=== PATIENT | male | born 1965 | race Caucasian/White ===

== ENCOUNTER → 2021-07-17 15:50 | Outpatient (BNVA) | payer OTHER, SELFPAY | PROVIDERS: Visit Provider Family Medicine | DX: M1A.9XX0 Chronic gout, unspecified, without tophus (tophi) (principal); Z76.89 Persons encountering health services in other specified circumstances; Z12.5 Encounter for screening for malignant neoplasm of prostate; Z13.220 Encounter for screening for lipoid disorders; Z13.6 Encounter for screening for cardiovascular disorders | CPT/HCPCS: 80053; 80061; 84153; 84550; 85025 ==

== ENCOUNTER → 2024-06-01 14:58 | Outpatient (BNVA) | payer OTHER, SELFPAY | PROVIDERS: PCP Family Medicine; Visit Provider Family Medicine | DX: Z13.6 Encounter for screening for cardiovascular disorders (principal); Z12.5 Encounter for screening for malignant neoplasm of prostate | CPT/HCPCS: 80053; 80061; 84550; 85025; G0103 ==

== ENCOUNTER → 2024-11-17 11:15 | Outpatient (BNVA) | payer OTHER, SELFPAY | PROVIDERS: PCP Family Medicine | DX: L03.114 Cellulitis of left upper limb (principal) | CPT/HCPCS: 87070; 87075; 87205 ==